=== PATIENT | female | born 1975 | race Two or more races ===

== ENCOUNTER 2020-02-29 10:09 | Emergency (ER) | payer MEDICAID ==
[~2020-02-29] VITALS: Ht 154.9 cm; Wt 67.6 kg
--- NOTE | 2020-02-29 10:25 | NUR ---
patient came in to the er c/o "Abdominal Pain started yesterday worse now. Feel Bloated/nauseous". on room air breathing evenly and unlabored. connected to the monitor and pulse ox. kept comfortable, will continue to monitor accordingly.
[2020-02-29] MEDS ORDERED: MORPHINE SULFATE INJ 2 MG/ML DISP.SYRIN ONE (10:40)
[2020-02-29] MEDS ORDERED: ONDANSETRON HCL/PF 4 MG/2 ML VIAL ONE (10:40)
--- NOTE | 2020-02-29 10:48 | NUR ---
urine collected and sent to lab
[2020-02-29 10:53] LABS: BASOPHILS % (AUTO) 0.6 % (0.0-2.0); EOSINOPHILS % (AUTO) 0.7 % (0.0-6.0); HEMATOCRIT 40 % (33-45); HEMOGLOBIN 13.1 g/dL (11.5-14.8); LYMPHOCYTES # (AUTO) 1.1 /CMM (0.8-4.8); LYMPHOCYTES % (AUTO) 14.5 % (20.0-44.0); MEAN CORPUSCULAR HGB CONC 33 g/dl (31.0-36.0); MEAN CORPUSCULAR VOLUME 91 fL (82-100); MONOCYTES # (AUTO) 0.4 /CMM (0.1-1.30); MONOCYTES % (AUTO) 5.4 % (2.0-12.0); NEUTROPHILS % (AUTO) 78.8 % (43.0-81.0); PLATELET COUNT (AUTO) 305 /CMM (150-450); RED BLOOD CELL COUNT(AUTO) 4.34 MIL/uL (4.0-5.2); WHITE BLOOD COUNT (AUTO) 7.6 K/uL (4.3-11.0)
[2020-02-29 10:57] LABS: APPEARANCE,URINE SLIGHTLY HAZY (CLEAR); BILIRUBIN,URINE Negative (NEGATIVE); BLOOD, URINE Small Ery/uL (NEGATIVE); COLOR,URINE Yellow (YELLOW); KETONES,URINE Negative (NEGATIVE); LEUKOCYTE ESTERASE ,URINE Negative (NEGATIVE); NITRITE, URINE Negative (NEGATIVE); PROTEIN,URINE Negative (NEGATIVE); UGLUCOSE Negative (NEGATIVE); UROBILINOGEN,URINE 0.2 EU/dL (0.2)
[2020-02-29 10:59] LABS: BACTERIA,URINE None seen /HPF (None Seen); WBC,URINE 0-2 /HPF (0-3)
[2020-02-29 10:59] LABS: CALCIUM, SERUM 8.9 mg/dL (8.5-10.1); CREATININE 0.7 mg/dL (0.6-1.3); POTASSIUM 3.8 mmol/L (3.5-5.1)
[2020-02-29 11:00] LABS: SQUAMOUS EPITHELIAL CELL,UR Few /HPF (None Seen)
[2020-02-29] MEDS ORDERED: ONDANSETRON HCL/PF 4 MG/2 ML VIAL IVP ONE (11:00)
[2020-02-29] MEDS ORDERED: MORPHINE SULFATE INJ 2 MG/ML DISP.SYRIN IV ONE ×2 (11:00→12:00)
[2020-02-29 11:04] LABS: ALBUMIN 3.7 g/dL (3.4-5.0); BILIRUBIN,DIRECT 0.1 mg/dL (0.0-0.2); BILIRUBIN,TOTAL 0.3 mg/dL (0.2-1.0); TOTAL PROTEIN, SERUM 7.5 g/dL (6.4-8.2)
[2020-02-29] MEDS ORDERED: MORPHINE SULFATE INJ 4 MG/ML DISP.SYRIN ONE (11:40)
[2020-02-29 13:33] VITALS: BP 118/71
--- NOTE | 2020-02-29 13:34 | NUR ---
Patient discharged to home in stable condition. Written and verbal after care instructions given. Patient verbalizes understanding of instruction.IV removed. Catheter intact and site benign. Pressure and 4x4 applied to site. No bleeding noted.
== END 2020-02-29 13:33 | disposition home or self-care (01) ==
LOC: ER 10:11
DX: R14.0 Abdominal distension (gaseous) (principal); R11.0 Nausea; Z90.49 Acquired absence of other specified parts of digestive tract
CPT/HCPCS: 36415; 74176; 80048; 80076; 81001; 83690; 84703; 85025; 96374; 96375; 96376; 99284; J2270 ×2; J2405; 81000-TC

== ENCOUNTER 2022-03-05 08:18 | Inpatient (IN) | payer OTHER ==
[~2022-03-05] VITALS: Ht 154.9 cm; Wt 64.4 kg
--- NOTE | 2022-03-05 08:30 | NUR ---
BIBS c/o abd pain and nausea started this morning. AMBULATORY, AAOX4, IN PAIN 09/03.
--- NOTE | 2022-03-05 08:35 | NUR ---
AT BED SIDE
--- NOTE | 2022-03-05 08:40 | NUR ---
URINE SAMPLE SENT TO LAB
--- NOTE | 2022-03-05 08:45 | NUR ---
BLOOD DRAWN AND SENT TO LAB.
[2022-03-05] MEDS ORDERED: ONDANSETRON HCL/PF 4 MG/2 ML VIAL ONE ×2 (08:56→10:37)
[2022-03-05] MEDS ORDERED: MORPHINE SULFATE INJ 4 MG/ML DISP.SYRIN ONE ×2 (08:56→10:34)
[2022-03-05] MEDS ORDERED: ONDANSETRON HCL/PF 4 MG/2 ML VIAL IVP ONE (09:00)
[2022-03-05] MEDS ORDERED: IV NS 0.9% 500 ML BAG IV ONE (09:00)
[2022-03-05] MEDS ORDERED: MORPHINE SULFATE INJ 2 MG/ML DISP.SYRIN IV ONE ×2 (09:00→10:30)
[2022-03-05 09:05] LABS: BASOPHILS # (AUTO) 0.1 K/uL (0.0-0.2); BASOPHILS % (AUTO) 0.4 % (0.0-2.0); EOSINOPHILS % (AUTO) 0.9 % (0.0-6.0); HEMATOCRIT 39 % (33-45); HEMOGLOBIN 13.1 g/dL (11.5-14.8); LYMPHOCYTES # (AUTO) 0.7 K/uL (0.8-4.8); LYMPHOCYTES % (AUTO) 5.1 % (20.0-44.0); MEAN CORPUSCULAR HGB CONC 33 g/dl (31.0-36.0); MEAN CORPUSCULAR VOLUME 90 fL (82-100); MONOCYTES # (AUTO) 0.6 K/uL (0.1-1.30); MONOCYTES % (AUTO) 4.8 % (2.0-12.0); NEUTROPHILS # (AUTO) 11.4 K/uL (1.8-8.9); NEUTROPHILS % (AUTO) 88.8 % (43.0-81.0); PLATELET COUNT (AUTO) 295 K/uL (150-450); WHITE BLOOD COUNT (AUTO) 12.9 K/uL (4.3-11.0)
[2022-03-05 09:12] LABS: BILIRUBIN,URINE NEGATIVE (NEGATIVE); COLOR,URINE YELLOW (YELLOW); LEUKOCYTE ESTERASE ,URINE TRACE (NEGATIVE); NITRITE, URINE NEGATIVE (NEGATIVE); PH,URINE 5.5 (5.0-8.0); PROTEIN,URINE NEGATIVE (NEGATIVE); UGLUCOSE NEGATIVE (NEGATIVE); UROBILINOGEN,URINE 0.2 EU/dL (0.2)
[2022-03-05 09:20] LABS: CALCIUM, SERUM 8.8 mg/dL (8.5-10.1); CREATININE 0.7 mg/dL (0.6-1.3)
[2022-03-05 09:25] LABS: ALBUMIN 3.4 g/dL (3.4-5.0); BILIRUBIN,DIRECT 0.1 mg/dL (0.0-0.2); BILIRUBIN,TOTAL 0.3 mg/dL (0.2-1.0); TOTAL PROTEIN, SERUM 7.1 g/dL (6.4-8.2)
[2022-03-05 09:26] LABS: BACTERIA,URINE Few /HPF (None Seen); RBC,URINE TOO NUMEROUS TO COUN /HPF (0-2)
--- NOTE | 2022-03-05 09:44 | NUR ---
RADIOLOGY CALLED TO F/U ON CT,SPOKE WITH SNEHA,IF NOT DONE,THEY WILL TAKE PATIENT RIGHT NOW ACCORDING TO HIM
--- NOTE | 2022-03-05 09:48 | NUR ---
PATIENT WENT FOR CT ABDO.AND PELVIS VIA [facility].
[2022-03-05] MEDS ORDERED: PIPERACILLIN /TAZOBACTAM 3.375 G in IV D5W 50 ML IV ONE (10:30)
[2022-03-05] MEDS ORDERED: ONDANSETRON HCL/PF - ER 4 MG/2 ML VIAL IV ONE (10:30)
[2022-03-05] MEDS ORDERED: ATOR40TA PO (10:52)
--- NOTE | 2022-03-05 11:41 | NUR ---
CALLED NURSING SUP REGARDING PT BED
--- NOTE | 2022-03-05 13:09 | NUR ---
ROOM 311-1
[2022-03-05] MEDS ORDERED: ONDANSETRON HCL/PF 4 MG/2 ML VIAL IVP PRN (13:30)
[2022-03-05] MEDS ORDERED: MAG HYDROX/AL HYDROX/SIMETH 30 ML UDC PO PRN (13:30)
[2022-03-05] MEDS ORDERED: POLYETHYLENE GLYCOL 3350 17 GM POWD.PACK PO PRN (13:30)
[2022-03-05] MEDS ORDERED: ACETAMINOPHEN 325 MG TABLET PO PRN (13:30)
--- NOTE | 2022-03-05 13:35 | NUR ---
RN NOTE Received report from Trey from ER.
--- NOTE | 2022-03-05 13:37 | NUR ---
REPORT GIVEN TO JACOB SHALINI 311-1
--- NOTE | 2022-03-05 13:47 | NUR ---
PATIENT ADMITTED TO [facility]IA [facility]
--- NOTE | 2022-03-05 14:00 | NUR ---
ADMISSION NOTE Received patient from ER via gurney. Patient is A/O x 4, able to make needs known. Stable on room air, breathing evenly and unlabored. No SOB or s/s of distress noted. IV access on LAC #20G, intact and patent. All belongings accounted for. Patient oriented to room and how to use the call light. Skin assessment done, skin is intact. Bowel sound present x 4. Lung sounds clear. Patient complaining of abdominal pain, 4/10. No nausea and vomiting noted. Safety precautions in place: bed in low, locked position; siderails up x 2, call light within reach. Will continue to monitor.
[2022-03-05] MEDS: PIPERACILLIN /TAZOBACTAM 3.375 G in IV D5W 100 ML IV SCH ×2 (14:46→20:24)
[2022-03-05 15:00] VITALS: BP 124/61
[2022-03-05 15:38] LABS: BILIRUBIN,URINE NEGATIVE (NEGATIVE); COLOR,URINE YELLOW (YELLOW); LEUKOCYTE ESTERASE ,URINE NEGATIVE (NEGATIVE); NITRITE, URINE NEGATIVE (NEGATIVE); PROTEIN,URINE NEGATIVE (NEGATIVE); UGLUCOSE NEGATIVE (NEGATIVE); UROBILINOGEN,URINE 0.2 EU/dL (0.2)
[2022-03-05 15:47] LABS: BACTERIA,URINE None seen /HPF (None Seen); RBC,URINE 51-80 /HPF (0-2); SQUAMOUS EPITHELIAL CELL,UR 0-2 /HPF (None Seen); WBC,URINE 0-2 /HPF (0-3)
[2022-03-05 16:00] VITALS: BP 125/67
[2022-03-05] MEDS: MORPHINE SULFATE INJ 2 MG/ML DISP.SYRIN IV PRN (17:43)
[2022-03-05] MEDS ORDERED: PIPERACILLIN /TAZOBACTAM 3.375 G in IV D5W 50 ML IV SCH (18:00)
--- NOTE | 2022-03-05 19:14 | NUR ---
MS RN CLOSING NOTE Patient in bed, awake. A/O x 4, able to make needs known. Stable on room air, breathing evenly and unlabored. No SOB or s/s of distress noted. IV access on LAC #20G, intact and patent. Due meds given. All needs attended to. Safety precautions in place: bed in low, locked position; siderails up x 2, call light within reach. Will endorse to manufacturing shift supervisor nurse for PEDRO LUIS.
--- NOTE | 2022-03-05 19:29 | NUR ---
MS RN OPENING NOTE RECEIVED PATIENT AWAKE IN BED. A/O X4, ABLE TO MAKE NEEDS KNOWN. DAUGHTERS AT BEDSIDE. PT STABLE ON ROOM AIR. NO SOB OR S/S OF RESPIRATORY DISTRESS NOTED. IV ACCESS LAC 20 GAUGE SL, INTACT AND PATENT. SAFETY PRECAUTIONS IN PLACE. BED IN LOWEST LOCKED POSITION, HOB ELEVATED, SIDE RAILS UP X2, AND CALL LIGHT AND TABLE WITHIN REACH. ALL NEEDS MET AT THIS TIME.
[2022-03-06] MEDS: PIPERACILLIN /TAZOBACTAM 3.375 G in IV D5W 100 ML IV SCH ×3 (04:17→20:35)
[2022-03-06 06:26] LABS: BASOPHILS % (AUTO) 0.7 % (0.0-2.0); EOSINOPHILS % (AUTO) 2.5 % (0.0-6.0); HEMATOCRIT 37 % (33-45); HEMOGLOBIN 12.6 g/dL (11.5-14.8); LYMPHOCYTES # (AUTO) 0.7 K/uL (0.8-4.8); LYMPHOCYTES % (AUTO) 11.9 % (20.0-44.0); MEAN CORPUSCULAR HGB CONC 34 g/dl (31.0-36.0); MEAN CORPUSCULAR VOLUME 89 fL (82-100); MONOCYTES # (AUTO) 0.5 K/uL (0.1-1.30); MONOCYTES % (AUTO) 8.8 % (2.0-12.0); NEUTROPHILS # (AUTO) 4.5 K/uL (1.8-8.9); NEUTROPHILS % (AUTO) 76.1 % (43.0-81.0); PLATELET COUNT (AUTO) 271 K/uL (150-450); RED BLOOD CELL COUNT(AUTO) 4.15 MIL/uL (4.0-5.2); WHITE BLOOD COUNT (AUTO) 5.9 K/uL (4.3-11.0)
--- NOTE | 2022-03-06 06:32 | NUR ---
MS RN CLOSING NOTE PATIENT AWAKE IN BED. A/O X4, ABLE TO MAKE NEEDS KNOWN. PT STABLE ON ROOM AIR. NO SOB OR S/S OF RESPIRATORY DISTRESS NOTED. IV ACCESS LAC 20 GAUGE SL, INTACT AND PATENT. ALL DUE MEDS GIVEN ORDERED. SAFETY PRECAUTIONS IN PLACE AT ALL TIMES. BED IN LOWEST LOCKED POSITION, HOB ELEVATED, SIDE RAILS UP X2, AND CALL LIGHT AND TABLE WITHIN REACH. ALL NEEDS MET AT THIS TIME. WILL ENDORSE TO ONCOMING NURSE FOR PEDRO LUIS.
[2022-03-06 07:23] LABS: CALCIUM, SERUM 8.4 mg/dL (8.5-10.1); CREATININE 0.8 mg/dL (0.6-1.3); MAGNESIUM 2.3 mg/dL (1.8-2.4); POTASSIUM 3.8 mmol/L (3.5-5.1)
--- NOTE | 2022-03-06 07:30 | NUR ---
MS RN OPENING NOTES RECEIVED PATIENT ON BED AWAKE AND A/O X4. ON ROOM AIR TOLERATING WELL. NO SOB NOTED. NOT IN DISTRESS. WITH NO COMPLAINTS OF PAIN OR DISCOMFORT AT THIS TIME. WITH IV ACCESS AT LEFT AC G20 SALINE LOCKED, PATENT AND INTACT. SAFETY MEASURES IN PLACED. CALL LIGHT WITHIN REACH. BED ON LOWEST LOCKED POSITION, SIDE RAILS UP X2. WILL CONTINUE TO MONITOR.
[2022-03-06 08:00] VITALS: BP 94/65
[2022-03-06] MEDS: PANTOPRAZOLE 40 MG TABLET.DR PO SCH (08:05)
[2022-03-06] MEDS ORDERED: HYOSCYAMINE SULFATE 0.125 MG TAB.SUBL SL PRN (15:00)
[2022-03-06 16:00] VITALS: BP 130/70
--- NOTE | 2022-03-06 18:38 | NUR ---
MS RN CLOSING NOTES PATIENT ON BED AWAKE AND A/O X4. ON ROOM AIR TOLERATING WELL. NO SOB NOTED. NOT IN DISTRESS. WITH NO COMPLAINTS OF PAIN OR DISCOMFORT AT THIS TIME. WITH IV ACCESS AT LEFT AC G20 SALINE LOCKED, PATENT AND INTACT. DUE MEDS GIVEN. SAFETY MEASURES IN PLACED. CALL LIGHT WITHIN REACH. BED ON LOWEST LOCKED POSITION, SIDE RAILS UP X2. WILL ENDORSE TO NEXT SHIFT FOR PEDRO LUIS.
--- NOTE | 2022-03-06 19:37 | NUR ---
MS RN OPENING NOTE RECEIVED PATIENT AWAKE IN BED. A/O X4, ABLE TO MAKE NEEDS KNOWN. DAUGHTER AT BEDSIDE. PT STABLE ON ROOM AIR. NO SOB OR S/S OF RESPIRATORY DISTRESS NOTED. IV ACCESS LAC 20 GAUGE SL, INTACT AND PATENT. NO COMPLAINTS OF PAIN OR DISCOMFORT AT THIS TIME. SAFETY PRECAUTIONS IN PLACE. BED IN LOWEST LOCKED POSITION, HOB ELEVATED, SIDE RAILS UP X2, AND CALL LIGHT AND TABLE WITHIN REACH. ALL NEEDS MET AT THIS TIME.
[2022-03-06 21:20] VITALS: BP 129/54
[2022-03-06] MEDS: MORPHINE SULFATE INJ 2 MG/ML DISP.SYRIN IV PRN (21:21)
--- NOTE | 2022-03-06 21:21 | NUR ---
RN NOTE PT COMPLAINED OF ABDOMINAL PAIN 07/04. ADMINISTERED MORPHINE 2 MG IV ORDERED FOR SEVERE PAIN. ALL NEEDS MET AND ATTENDED TO AT THIS TIME.
[2022-03-07] MEDS: PIPERACILLIN /TAZOBACTAM 3.375 G in IV D5W 100 ML IV SCH (05:15)
--- NOTE | 2022-03-07 06:54 | NUR ---
MS RN CLOSING NOTE PATIENT AWAKE IN BED. A/O X4, ABLE TO MAKE NEEDS KNOWN. PT STABLE ON ROOM AIR. NO SOB OR S/S OF RESPIRATORY DISTRESS NOTED. IV ACCESS LAC 20 GAUGE SL, INTACT AND PATENT. NO COMPLAINTS OF PAIN OR DISCOMFORT AT THIS TIME. ALL DUE MEDS GIVEN ORDERED. SAFETY PRECAUTIONS IN PLACE AT ALL TIMES. BED IN LOWEST LOCKED POSITION, HOB ELEVATED, SIDE RAILS UP X2, AND CALL LIGHT AND TABLE WITHIN REACH. ALL NEEDS MET AT THIS TIME. WILL ENDORSE TO ONCOMING NURSE FOR PEDRO LUIS.
[2022-03-07] MEDS: PANTOPRAZOLE 40 MG TABLET.DR PO SCH (07:29)
--- NOTE | 2022-03-07 07:30 | NUR ---
MS RN OPENING NOTE RECEIVED PATIENT AWAKE IN BED IN SITTING POSITION. A/O X4, ABLE TO MAKE NEEDS KNOWN. PT STABLE ON ROOM AIR. NO SOB OR S/S OF RESPIRATORY DISTRESS NOTED. IV ACCESS LAC 20 GAUGE SL, INTACT AND PATENT. NO COMPLAINTS OF PAIN OR DISCOMFORT AT THIS TIME. SAFETY PRECAUTIONS IN PLACE. BED IN LOWEST LOCKED POSITION, HOB ELEVATED, SIDE RAILS UP X2, AND LOCKED. CALL LIGHT AND TABLE WITHIN REACH. WILL CONTINUE TO MONITOR.
[2022-03-07 08:00] VITALS: BP 95/58
[2022-03-07] MEDS ORDERED: CIPR500T5 PO (10:19)
[2022-03-07] MEDS ORDERED: HYOS0.1286 SL (10:19)
[2022-03-07] MEDS ORDERED: PANT40TA49 PO (10:19)
[2022-03-07] MEDS ORDERED: METR500T PO (10:19)
--- NOTE | 2022-03-07 12:35 | NUR ---
EDITOR IN CHIEF NOTES DISCHARGE PATIENT IN STABLE CONDITION. VITAL SIGNS IN NORMAL RANGE. ALL THE BELONGINGS ACCOUNTED AND SIGNED FOR. IV SITE REMOVED. COVERED WITH DRY DRESSING. NO BLEEDING NOTED. ALL THE DISCHARGE INSTRUCTIONS GIVEN TO THE PATIENT. PATIENT VERBALIZED UNDERSTANDING. NO SHORTNESS OF BREATH , NO DISCOMFORT AND NO DISTRESS NOTED. DENA WHEELED THE PATIENT TO THE LOBBY AT 1235 . PATIENT LEFT FACILITY IN STABLE CONDITION. MD AND CHARGE NURSE AWARE OF THE DISCHARGE.
== END 2022-03-07 12:30 | disposition home or self-care (01) | DRG 249 ==
LOC: ER 08:18 → TRANSITION 11:54 → MED 13:35
PROVIDERS: ADMIT Nurse Practitioner Family; ATTEND Internal Medicine
DX: A09 Infectious gastroenteritis and colitis, unspecified (principal); E78.5 Hyperlipidemia, unspecified; K59.00 Constipation, unspecified; Z20.822 Contact with and (suspected) exposure to COVID-19; Z90.49 Acquired absence of other specified parts of digestive tract; N85.4 Malposition of uterus
CPT/HCPCS: 36415; 80048-TC; 80076-TC; 81001; 83690-TC; 83735-TC; 84703-TC; 85025-TC; 87081-TC; G0378; J2270; J2405; J2543; J7040; J7050; J7060

== ENCOUNTER 2022-09-16 20:01 | Emergency (ER) | payer OTHER ==
[~2022-09-16] VITALS: Ht 154.9 cm; Wt 63.5 kg
[~2022-09-16 20:01] MED LIST: ATOR40TA PO; CIPR500T5 PO; HYOS0.1286 SL; METR500T PO; PANT40TA49 PO
[2022-09-16 20:12] VITALS: BP 111/72
[2022-09-16] MEDS ORDERED: IBUPROFEN 600 MG TABLET PO ONE (20:30)
[2022-09-16] MEDS ORDERED: IBUPROFEN 600 MG TABLET ONE (20:40)
[2022-09-16] MEDS ORDERED: IBUP-1957 PO (21:06)
--- NOTE | 2022-09-16 21:10 | NUR ---
Patient discharged to home in stable condition. Written and verbal after care instructions given. Patient verbalizes understanding of instruction. Pt ambulatory with a steady gait
== END 2022-09-16 21:10 | disposition home or self-care (01) ==
LOC: ER 20:08
DX: S90.31XA Contusion of right foot, initial encounter (principal); Z79.899 Other long term (current) drug therapy; W20.8XXA Other cause of strike by thrown, projected or falling object, initial encounter; Y93.89 Activity, other specified; Y92.89 Other specified places as the place of occurrence of the external cause; Y99.0 Civilian activity done for income or pay
CPT/HCPCS: 73630-TC

== ENCOUNTER 2023-09-20 12:32 | Emergency (ER) | payer MEDICAID, OTHER ==
[~2023-09-20] VITALS: Ht 154.9 cm; Wt 71.2 kg
[~2023-09-20 12:32] MED LIST changes: +IBUP-1957 PO
[2023-09-20] MEDS ORDERED: DIPH25CA83 PO (13:15)
[2023-09-20] MEDS ORDERED: PRED50TA PO (13:15)
[2023-09-20] MEDS ORDERED: diphenhydrAMINE HCL 25 MG CAPSULE ONE (13:21)
[2023-09-20] MEDS ORDERED: predniSONE 20 MG TABLET ONE (13:21)
[2023-09-20] MEDS ORDERED: predniSONE 50 MG TABLET PO ONE (13:30)
[2023-09-20] MEDS ORDERED: DIPHENHYDRAMINE HCL 12.5 MG/5 ML UDC PO ONE (13:30)
[2023-09-20 13:39] VITALS: BP 114/66; TEMP 98.1; O2SAT 100
== END 2023-09-20 13:50 | disposition home or self-care (01) ==
LOC: ER 12:43
DX: R21 Rash and other nonspecific skin eruption (principal); L50.9 Urticaria, unspecified; Z90.49 Acquired absence of other specified parts of digestive tract
CPT/HCPCS: 99283; Q0163 ×2

== ENCOUNTER 2023-11-21 15:07 | Emergency (ER) | payer OTHER ==
[~2023-11-21] VITALS: Ht 149.9 cm; Wt 70.8 kg
[~2023-11-21 15:07] MED LIST changes: +DIPH25CA83 PO; +PRED50TA PO
[2023-11-21 15:58] VITALS: BP 98/71; TEMP 98; O2SAT 99
[2023-11-21] MEDS ORDERED: IBUP-1957 PO (18:30)
[2023-11-21] MEDS ORDERED: SILV20CR13 TP (18:30)
[2023-11-21] MEDS ORDERED: SILVER SULFADIAZINE CREAM 25 GM TUBE ONE (18:32)
[2023-11-21] MEDS ORDERED: IBUPROFEN 400 MG TABLET ONE (18:32)
[2023-11-21] MEDS: SILVER SULFADIAZINE 50 GM JAR TP ONE (18:34)
[2023-11-21] MEDS: IBUPROFEN 400 MG TABLET PO ONE (18:34)
== END 2023-11-21 18:48 | disposition home or self-care (01) ==
LOC: ER 15:07
DX: S91.202A Unspecified open wound of left great toe with damage to nail, initial encounter (principal); W18.30XA Fall on same level, unspecified, initial encounter; Y93.89 Activity, other specified; Y92.89 Other specified places as the place of occurrence of the external cause; Y99.8 Other external cause status

== ENCOUNTER 2025-03-14 16:54 | Emergency (ER) | payer MEDICAID, OTHER ==
[~2025-03-14] VITALS: Ht 149.9 cm; Wt 71.7 kg
[~2025-03-14 16:54] MED LIST changes: +SILV20CR13 TP
[2025-03-14 17:01] VITALS: BP 109/56; TEMP 98.7; O2SAT 98
[2025-03-14] MEDS ORDERED: IBUPROFEN 600 MG TABLET ONE (18:36)
[2025-03-14] MEDS: IBUPROFEN 600 MG TABLET PO ONE (18:39)
== END 2025-03-14 18:45 | disposition home or self-care (01) ==
LOC: ER 16:54
DX: S63.502A Unspecified sprain of left wrist, initial encounter (principal); S60.222A Contusion of left hand, initial encounter; Z79.52 Long term (current) use of systemic steroids; Z90.49 Acquired absence of other specified parts of digestive tract; W22.8XXA Striking against or struck by other objects, initial encounter; Y93.89 Activity, other specified; Y92.89 Other specified places as the place of occurrence of the external cause; Y99.8 Other external cause status
CPT/HCPCS: 73110; 73130-TC

== ENCOUNTER 2025-04-08 15:48 | Emergency (ER) | payer MEDICAID ==
[~2025-04-08] VITALS: Ht 149.9 cm; Wt 71.7 kg
[2025-04-08 15:58] VITALS: BP 115/74; TEMP 98.3; O2SAT 100
[2025-04-08] MEDS ORDERED: DIPH25CA83 PO (16:35)
[2025-04-08] MEDS ORDERED: PRED20TA PO (16:35)
[2025-04-08] MEDS ORDERED: FAMO-131 PO (16:35)
== END 2025-04-08 16:42 | disposition home or self-care (01) ==
LOC: ER 15:52
DX: L50.8 Other urticaria (principal); T78.1XXA Other adverse food reactions, not elsewhere classified, initial encounter; Z79.52 Long term (current) use of systemic steroids; Z90.49 Acquired absence of other specified parts of digestive tract; Z79.899 Other long term (current) drug therapy; X58.XXXA Exposure to other specified factors, initial encounter